=== PATIENT | male | born 1995 ===

== ENCOUNTER → 2019-02-10 | Outpatient (CLI) | payer OTHER | LOC: AMB 18:36 | PROVIDERS: ATTEND Nurse Practitioner | DX: R41.82 Altered mental status, unspecified (principal); M54.2 Cervicalgia; M25.511 Pain in right shoulder; S00.01XA Abrasion of scalp, initial encounter; V48.5XXA Car driver injured in noncollision transport accident in traffic accident, initial encounter | CPT/HCPCS: A0425; A0427 ==